=== PATIENT | male | born 1965 | race Caucasian/White ===

== ENCOUNTER 2018-11-17 09:33 | Emergency (ER) | payer OTHER ==
[2018-11-17 09:46] VITALS: BP 160/98
--- NOTE | 2018-11-17 10:39 | UC ---
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 Pt did not fall, but slipped and caught self. Pt with pain in left upper buttock and left hip sice. Pt states walking with limp second to pain. Pt states interment parasthesia left lateral upper leg. Pt took Motrin 200mg with little improvement. Pt states rested yesterday and pain improved. Today went to work and limping second to pain. No change in bowel/bladder. No blood in urine. No leg weakness. No other concerns or injury. No spine pain Pt's medications reviewed this visit - History of Current Complaint Chief Complaint: UCBackPain Stated Complaint: HIP INJURY Time Seen by Provider: 11/17/18 10:29 Hx Obtained From: Patient Pain Intensity: 9 - Allergies/Home Medications Allergies/Adverse Reactions: Allergies Allergy/AdvReac Type Severity Reaction Status Date / Time No Known Allergies Allergy Verified 11/17/18 09:46 PMH/Surg Hx/FS Hx/Imm Hx Previously Healthy: Yes - Surgical History Surgical History: None - Family History Known Family History: Positive: Non-Contributory - Social History Occupation: Employed Full-time Lives: With Family Alcohol Use: Occasionally Substance Use Type: None Smoking Status (MU): Former Smoker Review of Systems All Other Systems Reviewed And Are Negative: Yes Constitutional: Positive: Negative Skin: Positive: Negative Musculoskeletal: Positive: Other: - left upper buttock, left hip Neurological: Positive: Paresthesia - left upper hip Physical Exam - Summary Physical Exam Summary: Vital Signs Reviewed: Yes A+Ox3, obvious discomfort with movement Eyes: Conjunctiva Clear, NORA. EOM intact and full ENT: Hearing grossly normal TM x 2 clear, mmoist, uvula midline, no exudate, no erythema Neck: Positive: Supple Respiratory: Positive: No respiratory distress, No accessory muscle use + CTA throughout no w/r Cardiovascular: RRR nl s1, s2 no m/r CBT <2 sec abd soft + BS nt/nd no guarding, no distension Musculoskeletal Exam: no spinous process pain c/t/l/s + TTP left mid buttock into left lateral hip. Palpable spasm left gluteus Pt ambulate with limp. Pt with pain increase with extension of knee, external rotation - pain gluteus area + flex.ext ankle, great toe Neurological: Positive: Alert, + sensation throughout + gross sensation throughout 2+ patellar b/l without clonus Psychological: Positive: Normal Response To Family Skin: Positive: no rash, no ecchymosis, no edema, no open wounds Vital Signs: Initial Vital Signs Temp 98 F 11/17/18 09:43 Pulse 97 11/17/18 09:43 Resp 16 11/17/18 09:43 BP 160/98 11/17/18 09:43 Pulse Ox 100 11/17/18 09:43 Diagnostics - Radiology No standard instances Radiology Interpretation Completed By: Radiologist - Patient Name: TESSIE BUCIO Medical Record#: [id number] Ordering Physician: Frida Montes MD Acct.#: [id number] : 1965 Age: 53 Sex: M Location: [facility] Exam Date: 11/17/18 1048 ADM Status: REG ER Order Information: HIP LEFT 2 VIEWS AND PELVIS Accession Number: [id number] CPT: 73836 Indication: Left hip pain. 2 views of left hip and an AP view the pelvis demonstrates no fracture. Calcification along the gluteus medius tendon is noted. No fracture is identified. IMPRESSION : Tendinosis of the gluteus medius tendon near the greater trochanter. No fracture is noted. _ <Electronically signed by Ignacia Gutierrez MD in OV> 11/17/18 1124 Dictated By: Ignacia Gutierrez MD Dictated Date/Time: 11/17/18 112 Transcribed Date/Time: 1121 Copy to: CC:Frida Montes MD; Bishop Samuels MD Imaging - [facility] - [facility] [address] [address] ph ([phone]) ph ) ph ([phone]) This report is only to be considered final once signed by the Provider(s) as displayed in the "<Electronically Signed by >" field (s). Absence of a signature indicates the report is in a draft status and still needs to be finalized. In the event this document was created by someone other than the signing Provider, the individual initiating the document will be listed in the "Entered by:" or "Dictated by:" linda. 1 of 1 Re-Evaluation - Re-Evaluation First Eval Comment: reivewed imaging with pt. states improved following motrin. crutches. heat. strecth. work note. flexeril with precautions. f.u Dr. Gutierrez. BP elevated - pt in discomfort Lower Extremity Course/Dx - Course Course Of Treatment: Pt with tenderness left lower buttock and left hip s/p slip injuryon sat. Mnimal analgesia taken. Pt distal CSM intact. Palpable spasm left buttock. Pt with ROM with discomfort left buttock. Will check xray. motrin. anticipate crutches, motrin/apap, heat, stretch then ice. f/u with Dr Gutierrez - Differential Dx/Diagnosis Provider Diagnosis: Muscle spasm, Strain of left hip Discharge - Sign-Out/Discharge Documenting (check all that apply): Patient Departure All imaging exams completed and their final reports reviewed: Yes - Discharge Plan Condition: Stable Disposition: HOME Prescriptions: Cyclobenzaprine TAB* [Flexeril 10 MG TAB*] 5 mg PO BID PRN #5 tab PRN Reason: muscle spasm Patient Education Materials: Muscle Spasm (ED), Hip Pain (ED) Forms: *Gen. Provider Communication, *Work Release Referrals: Bishop Samuels MD [Primary Care Provider] - Additional Instructions: - Apply moist heat to your injured area, 15 minutes at a time, 2-3 times a day - Okay to alternate ibuprofen (Advil, Motrin) 600mg and Tylenol 650mg every 3 hours for pain. Take with food. Do NOT Take for more than 4-5 days - Take muscle relaxer as prescribed - this will likely cause drowsiness - do NOT drive, operate machinery or drink alcohol while taking this medication - Use crutches until you can walk normally without a limp - Slow, gentle stretches are important - Contact Dr. Gutierrez today, the occupational medicine provide, to schedule a follow-up appointment today or tomorrow - Billing Disposition and Condition Condition: STABLE Disposition: Home
[2018-11-17] MEDS ORDERED: Ibuprofen TAB* 600 MG PO ONE (10:48)
== END 2018-11-17 11:49 | disposition home or self-care (01) ==
LOC: UCEAST 09:33
DX: M62.838 Other muscle spasm (principal); S73.102A Unspecified sprain of left hip, initial encounter; W18.49XA Other slipping, tripping and stumbling without falling, initial encounter; Y93.9 Activity, unspecified; Y92.89 Other specified places as the place of occurrence of the external cause; Y99.0 Civilian activity done for income or pay; Z87.891 Personal history of nicotine dependence
CPT/HCPCS: 99202; A9270-GY; G0463